=== PATIENT | female | born 1980 | race American Indian/Alaskan Native ===

== ENCOUNTER 2018-03-07 15:36 | Inpatient (IN) | payer OTHER ==
[~2018-03-07] VITALS: Ht 167.6 cm; Wt 59.1 kg
[2018-03-07 16:04] LABS: BASOPHILS % (AUTO) 0.3 % (0-1); EOSINOPHILS # (AUTO) 0.1 X10'3 (0-0.9); EOSINOPHILS % (AUTO) 1.3 % (0-6); HEMATOCRIT 41.3 % (35.0-45.0); HEMOGLOBIN 14.3 g/dl (12.0-16.0); LYMPHOCYTES # (AUTO) 1.2 X10'3 (1.1-4.8); LYMPHOCYTES % (AUTO) 25.6 % (21-51); MEAN CORPUSCULAR HEMOGLOBIN 31.6 PG (27.0-31.0); MEAN CORPUSCULAR HGB CONC 34.7 % (33.0-36.5); MEAN PLATELET VOLUME 9.1 FL (7.4-10.4); MONOCYTES # (AUTO) 0.1 X10'3 (0-0.9); NEUTROPHILS # (AUTO) 3.2 X10'3 (1.8-7.7); NEUTROPHILS % (AUTO) 69.8 % (42-75); PLATELET COUNT 188 X10'3 (140-440); RED BLOOD COUNT 4.54 X10'6 (4.20-5.60); RED CELL DISTRIBUTION WIDTH 13.4 % (11.5-14.5); WHITE BLOOD COUNT 4.5 X10'3 (4.5-11.0)
[2018-03-07 16:27] LABS: ALANINE AMINOTRANSFERASE 18 U/L (12-78); ALBUMIN 3.4 G/DL (3.4-5.0); ALBUMIN/GLOBULIN RATIO 0.9 (1.1-1.5); ALKALINE PHOSPHATASE 41 IU/L (46-116); ANION GAP 15 (8-16); ASPARTATE AMINO TRANSFERASE 10 U/L (10-37); BILIRUBIN,TOTAL 0.8 MG/DL (0.1-1.0); BLOOD UREA NITROGEN 18 MG/DL (7-18); BUN/CREATININE RATIO 27.7 (6.6-38.0); CHLORIDE 105 MMOL/L (99-107); CREATININE 0.65 MG/DL (0.40-0.90); ETHANOL < 0.010 GM/DL (0.0-0.010); GLUCOSE 75 MG/DL (70-104); POTASSIUM 4.1 MMOL/L (3.5-5.1); SODIUM 142 MMOL/L (135-145); TOTAL CARBON DIOXIDE 22.3 MMOL/L (24-32); TOTAL PROTEIN 7.1 G/DL (6.4-8.2); eGFR > 90 ML/MIN
[2018-03-07 16:46] LABS: CLARITY,URINE CLOUDY (Clear); COLOR,URINE YELLOW (Yellow); GLUCOSE, URINE NEGATIVE (Neg); KETONES,URINE >=80 mg/dl (Neg); LEUKOCYTE ESTERASE ,URINE NEGATIVE (Neg); NITRITES, URINE NEGATIVE (Neg); OCCULT BLOOD,URINE NEGATIVE (Neg); PH,URINE 5.5 (4.8-8.0); PROTEIN,URINE TRACE mg/dl (Neg); UROBILINOGEN,URINE 0.2 E.U/dL (0.2-1.0)
[2018-03-07 16:48] LABS: UA COLLECTION TYPE CLN CATCH MIDSTREAM
[2018-03-07 16:56] LABS: URINE AMPHETAMINE SCREEN NEGATIVE (Neg); URINE BARBITUATE SCREEN NEGATIVE (Neg); URINE BENZODIAZEPINES SCREEN NEGATIVE (Neg); URINE CANNABINOID SCREEN NEGATIVE (Neg); URINE COCAINE SCREEN NEGATIVE (Neg); URINE METHADONE SCREEN NEGATIVE (Neg); URINE OPIATE SCREEN NEGATIVE (Neg); URINE PHENCYCLIDINE SCREEN NEGATIVE (Neg)
[2018-03-07 17:00] LABS: CAL OXALATE CRYSTALS 2+ /HPF (NEGATIVE)
[2018-03-07 17:01] LABS: BACTERIA,URINE NONE SEEN /HPF (Neg); MUCUS STRANDS MANY /LPF (Neg); RBC,URINE 0-2 /HPF (0-2); SQUAMOUS EPITHELIAL CELL,UR FEW /LPF (FEW); WBC,URINE 0-4 /HPF (0-4)
[2018-03-08] MEDS ORDERED: dextrose 50%-water 50ml dispensing syringe IV ONE ×2 (12:35→12:37)
[2018-03-08] MEDS ORDERED: ondansetron/PF 4mg/2ml inj IM ONE (16:45)
[2018-03-08] MEDS: dextrose 5%-1/2 normal saline 1,000 ML IV SCH (17:02)
[2018-03-08] MEDS ORDERED: magnesium 2GM in 50ml NS 50 ML IV PRN (17:05)
[2018-03-08] MEDS ORDERED: acetaminophen 650mg rectal suppository RC PRN (17:05)
[2018-03-08] MEDS ORDERED: bisacodyl 10mg suppository rectal RC PRN (17:05)
[2018-03-08] MEDS ORDERED: mag hydrox/Alum hydrox/simeth 30ml oral suspension PO PRN (17:05)
[2018-03-08] MEDS ORDERED: ondansetron/PF 4mg/2ml inj IV PRN (17:05)
[2018-03-08] MEDS ORDERED: potassium Cl 40MEQ/NS 500ml 500 ML IV PRN ×2 (17:05)
[2018-03-08] MEDS ORDERED: magnesium 4gm in 100ml NS 100 ML IV PRN (17:05)
[2018-03-08] MEDS: ziprasidone IM 20mg inj **IM only IM SCH (18:26)
[2018-03-08] MEDS ORDERED: BUSP10TA11 PO (19:43)
[2018-03-08] MEDS ORDERED: FLUO-103 (19:44)
[2018-03-08] MEDS ORDERED: NALT50TA PO (19:44)
[2018-03-08] MEDS ORDERED: normal saline 1000ml 1,000 ML IV ONE (23:45)
[2018-03-09 01:10] VITALS: BP 109/69
[2018-03-09] MEDS: ziprasidone IM 20mg inj **IM only IM SCH ×5 (01:19→23:55)
[2018-03-09] MEDS: dextrose 5%-1/2 normal saline 1,000 ML IV SCH ×3 (03:02→12:23)
[2018-03-09 05:51] LABS: BASOPHILS % (AUTO) 0.7 % (0-1); EOSINOPHILS # (AUTO) 0.2 X10'3 (0-0.9); EOSINOPHILS % (AUTO) 3.7 % (0-6); HEMATOCRIT 38.2 % (35.0-45.0); HEMOGLOBIN 12.9 g/dl (12.0-16.0); LYMPHOCYTES # (AUTO) 1.6 X10'3 (1.1-4.8); LYMPHOCYTES % (AUTO) 35.4 % (21-51); MEAN CORPUSCULAR HGB CONC 33.8 % (33.0-36.5); MEAN CORPUSCULAR VOLUME 91.7 FL (78-98); MEAN PLATELET VOLUME 9.5 FL (7.4-10.4); MONOCYTES # (AUTO) 0.3 X10'3 (0-0.9); MONOCYTES % (AUTO) 6.7 % (2-12); NEUTROPHILS # (AUTO) 2.4 X10'3 (1.8-7.7); NEUTROPHILS % (AUTO) 53.5 % (42-75); PLATELET COUNT 140 X10'3 (140-440); RED BLOOD COUNT 4.16 X10'6 (4.20-5.60); RED CELL DISTRIBUTION WIDTH 13.8 % (11.5-14.5); WHITE BLOOD COUNT 4.6 X10'3 (4.5-11.0)
[2018-03-09 06:22] LABS: ALANINE AMINOTRANSFERASE 10 U/L (12-78); ALBUMIN 2.7 G/DL (3.4-5.0); ALBUMIN/GLOBULIN RATIO 0.9 (1.1-1.5); ALKALINE PHOSPHATASE 36 IU/L (46-116); ANION GAP 7 (8-16); ASPARTATE AMINO TRANSFERASE 9 U/L (10-37); BILIRUBIN,TOTAL 0.6 MG/DL (0.1-1.0); BLOOD UREA NITROGEN 16 MG/DL (7-18); BUN/CREATININE RATIO 20.5 (6.6-38.0); CALCIUM 8.3 MG/DL (8.5-10.1); CHLORIDE 109 MMOL/L (99-107); CREATININE 0.78 MG/DL (0.40-0.90); GLUCOSE 128 MG/DL (70-104); POTASSIUM 3.5 MMOL/L (3.5-5.1); SODIUM 143 MMOL/L (135-145); TOTAL CARBON DIOXIDE 26.6 MMOL/L (24-32); TOTAL PROTEIN 5.7 G/DL (6.4-8.2); eGFR 83 ML/MIN
[2018-03-09] MEDS: K and/or MAG REPLACEMENT MC SCH (06:50)
[2018-03-09 07:00] VITALS: BP 108/62
[2018-03-09 11:26] VITALS: BP 111/72
[2018-03-09 19:00] VITALS: BP 103/68
[2018-03-09 23:41] VITALS: BP 97/71
[2018-03-10 05:51] LABS: BASOPHILS % (AUTO) 0.5 % (0-1); EOSINOPHILS # (AUTO) 0.2 X10'3 (0-0.9); EOSINOPHILS % (AUTO) 4.3 % (0-6); HEMATOCRIT 38.2 % (35.0-45.0); HEMOGLOBIN 13.1 g/dl (12.0-16.0); LYMPHOCYTES # (AUTO) 1.6 X10'3 (1.1-4.8); LYMPHOCYTES % (AUTO) 34.1 % (21-51); MEAN CORPUSCULAR HEMOGLOBIN 31.6 PG (27.0-31.0); MEAN CORPUSCULAR HGB CONC 34.4 % (33.0-36.5); MEAN CORPUSCULAR VOLUME 91.9 FL (78-98); MEAN PLATELET VOLUME 9.8 FL (7.4-10.4); MONOCYTES # (AUTO) 0.2 X10'3 (0-0.9); MONOCYTES % (AUTO) 4.6 % (2-12); NEUTROPHILS # (AUTO) 2.6 X10'3 (1.8-7.7); NEUTROPHILS % (AUTO) 56.5 % (42-75); PLATELET COUNT 145 X10'3 (140-440); RED BLOOD COUNT 4.16 X10'6 (4.20-5.60); RED CELL DISTRIBUTION WIDTH 13.9 % (11.5-14.5); WHITE BLOOD COUNT 4.6 X10'3 (4.5-11.0)
[2018-03-10 06:00] LABS: ALANINE AMINOTRANSFERASE 10 U/L (12-78); ALBUMIN 2.4 G/DL (3.4-5.0); ALBUMIN/GLOBULIN RATIO 0.8 (1.1-1.5); ALKALINE PHOSPHATASE 36 IU/L (46-116); ANION GAP 8 (8-16); ASPARTATE AMINO TRANSFERASE 8 U/L (10-37); BILIRUBIN,TOTAL 0.5 MG/DL (0.1-1.0); BLOOD UREA NITROGEN 9 MG/DL (7-18); BUN/CREATININE RATIO 12.2 (6.6-38.0); CALCIUM 8.2 MG/DL (8.5-10.1); CHLORIDE 109 MMOL/L (99-107); CREATININE 0.74 MG/DL (0.40-0.90); GLUCOSE 119 MG/DL (70-104); MAGNESIUM 1.9 MG/DL (1.5-2.4); POTASSIUM 3.4 MMOL/L (3.5-5.1); SODIUM 144 MMOL/L (135-145); TOTAL CARBON DIOXIDE 26.9 MMOL/L (24-32); TOTAL PROTEIN 5.4 G/DL (6.4-8.2); eGFR 88 ML/MIN
[2018-03-10 07:00] VITALS: BP 123/74
[2018-03-10] MEDS: K and/or MAG REPLACEMENT MC SCH (08:00)
[2018-03-10] MEDS: ziprasidone IM 20mg inj **IM only IM SCH ×2 (09:31→17:17)
[2018-03-10] MEDS: dextrose 5%-1/2 normal saline 1,000 ML IV SCH ×2 (09:32→19:02)
[2018-03-10 11:24] VITALS: BP 93/67
[2018-03-10] MEDS ORDERED: ziprasidone IM 20mg inj **IM only IM SCH ×2 (17:23→20:00)
[2018-03-10 20:00] VITALS: BP 109/70
[2018-03-10] MEDS: OLANZapine 5mg rapidly disint. tablet PO SCH ×2 (20:15→20:20)
[2018-03-10] MEDS ORDERED: OLANZapine 5mg rapidly disint. tablet PO SCH ×2 (21:00)
[2018-03-11] VITALS: BP 119/79
[2018-03-11] MEDS: dextrose 5%-1/2 normal saline 1,000 ML IV SCH ×3 (00:54→20:51)
[2018-03-11 06:18] LABS: EOSINOPHILS # (AUTO) 0.2 X10'3 (0-0.9); EOSINOPHILS % (AUTO) 3.6 % (0-6); HEMATOCRIT 38.1 % (35.0-45.0); HEMOGLOBIN 12.9 g/dl (12.0-16.0); LYMPHOCYTES # (AUTO) 1.4 X10'3 (1.1-4.8); LYMPHOCYTES % (AUTO) 30.8 % (21-51); MEAN CORPUSCULAR HEMOGLOBIN 30.8 PG (27.0-31.0); MEAN CORPUSCULAR HGB CONC 33.7 % (33.0-36.5); MEAN CORPUSCULAR VOLUME 91.3 FL (78-98); MEAN PLATELET VOLUME 9.9 FL (7.4-10.4); MONOCYTES # (AUTO) 0.2 X10'3 (0-0.9); MONOCYTES % (AUTO) 5.1 % (2-12); NEUTROPHILS # (AUTO) 2.7 X10'3 (1.8-7.7); NEUTROPHILS % (AUTO) 59.5 % (42-75); PLATELET COUNT 146 X10'3 (140-440); RED BLOOD COUNT 4.17 X10'6 (4.20-5.60); RED CELL DISTRIBUTION WIDTH 13.9 % (11.5-14.5); WHITE BLOOD COUNT 4.5 X10'3 (4.5-11.0)
[2018-03-11 06:38] LABS: ALANINE AMINOTRANSFERASE 11 U/L (12-78); ALBUMIN 2.4 G/DL (3.4-5.0); ALBUMIN/GLOBULIN RATIO 0.8 (1.1-1.5); ALKALINE PHOSPHATASE 36 IU/L (46-116); ANION GAP 7 (8-16); ASPARTATE AMINO TRANSFERASE 11 U/L (10-37); BILIRUBIN,TOTAL 0.6 MG/DL (0.1-1.0); BLOOD UREA NITROGEN 6 MG/DL (7-18); BUN/CREATININE RATIO 7.8 (6.6-38.0); CALCIUM 8.4 MG/DL (8.5-10.1); CHLORIDE 108 MMOL/L (99-107); CREATININE 0.77 MG/DL (0.40-0.90); GLUCOSE 107 MG/DL (70-104); MAGNESIUM 1.7 MG/DL (1.5-2.4); POTASSIUM 3.5 MMOL/L (3.5-5.1); SODIUM 142 MMOL/L (135-145); TOTAL CARBON DIOXIDE 26.8 MMOL/L (24-32); TOTAL PROTEIN 5.5 G/DL (6.4-8.2); eGFR 84 ML/MIN
[2018-03-11 07:05] VITALS: BP 116/74
[2018-03-11] MEDS: K and/or MAG REPLACEMENT MC SCH (07:14)
[2018-03-11] MEDS: ziprasidone IM 20mg inj **IM only IM SCH ×2 (08:09→15:24)
[2018-03-11] MEDS ORDERED: LORazepam 2 mg/ml vial IV ONE (10:15)
[2018-03-11 11:43] VITALS: BP 107/68
[2018-03-11] MEDS: LORazepam 2 mg/ml vial IV SCH ×2 (17:06→20:48)
[2018-03-11 20:00] VITALS: BP 102/74
[2018-03-11] MEDS: OLANZapine 5mg rapidly disint. tablet PO SCH ×2 (20:44→20:49)
[2018-03-12] VITALS: BP 129/73
[2018-03-12] MEDS: LORazepam 2 mg/ml vial IV SCH ×5 (01:40→15:59)
[2018-03-12 05:26] LABS: BASOPHILS % (AUTO) 0.7 % (0-1); EOSINOPHILS # (AUTO) 0.1 X10'3 (0-0.9); EOSINOPHILS % (AUTO) 2.8 % (0-6); HEMATOCRIT 39.6 % (35.0-45.0); HEMOGLOBIN 13.8 g/dl (12.0-16.0); LYMPHOCYTES # (AUTO) 1.4 X10'3 (1.1-4.8); MEAN CORPUSCULAR HEMOGLOBIN 31.5 PG (27.0-31.0); MEAN CORPUSCULAR HGB CONC 34.9 % (33.0-36.5); MEAN CORPUSCULAR VOLUME 90.2 FL (78-98); MEAN PLATELET VOLUME 9.8 FL (7.4-10.4); MONOCYTES # (AUTO) 0.2 X10'3 (0-0.9); MONOCYTES % (AUTO) 5.3 % (2-12); NEUTROPHILS # (AUTO) 2.4 X10'3 (1.8-7.7); NEUTROPHILS % (AUTO) 57.2 % (42-75); PLATELET COUNT 152 X10'3 (140-440); RED BLOOD COUNT 4.39 X10'6 (4.20-5.60); RED CELL DISTRIBUTION WIDTH 13.5 % (11.5-14.5); WHITE BLOOD COUNT 4.2 X10'3 (4.5-11.0)
[2018-03-12 05:53] LABS: ALANINE AMINOTRANSFERASE 12 U/L (12-78); ALBUMIN 2.5 G/DL (3.4-5.0); ALBUMIN/GLOBULIN RATIO 0.8 (1.1-1.5); ALKALINE PHOSPHATASE 38 IU/L (46-116); ANION GAP 7 (8-16); ASPARTATE AMINO TRANSFERASE 11 U/L (10-37); BILIRUBIN,TOTAL 0.7 MG/DL (0.1-1.0); BLOOD UREA NITROGEN 5 MG/DL (7-18); BUN/CREATININE RATIO 6.9 (6.6-38.0); CALCIUM 8.5 MG/DL (8.5-10.1); CHLORIDE 107 MMOL/L (99-107); CREATININE 0.72 MG/DL (0.40-0.90); GLUCOSE 109 MG/DL (70-104); MAGNESIUM 1.8 MG/DL (1.5-2.4); POTASSIUM 3.2 MMOL/L (3.5-5.1); SODIUM 142 MMOL/L (135-145); TOTAL CARBON DIOXIDE 27.8 MMOL/L (24-32); TOTAL PROTEIN 5.7 G/DL (6.4-8.2); eGFR > 90 ML/MIN
[2018-03-12] MEDS: dextrose 5%-1/2 normal saline 1,000 ML IV SCH (06:43)
[2018-03-12 07:11] VITALS: BP 130/86
[2018-03-12] MEDS: ziprasidone IM 20mg inj **IM only IM SCH (07:54)
[2018-03-12] MEDS ORDERED: potassium Cl 40MEQ/NS 500ml 500 ML IV PRN ×2 (07:55)
[2018-03-12] MEDS ORDERED: magnesium Cl slow-release 64mg tablet PO PRN (07:55)
[2018-03-12] MEDS ORDERED: magnesium 2GM in 50ml NS 50 ML IV PRN (07:55)
[2018-03-12] MEDS ORDERED: potassium Cl 20 mEq SR tablet PO PRN ×2 (07:55)
[2018-03-12] MEDS ORDERED: magnesium 4gm in 100ml NS 100 ML IV PRN (07:55)
[2018-03-12] MEDS: K and/or MAG REPLACEMENT MC SCH (08:00)
[2018-03-12] MEDS ORDERED: LIDOcaine 1% 30ml vial 5 ML in potassium Cl 40MEQ/NS 500ml 500 ML IV ONE (09:00)
[2018-03-12 11:00] VITALS: BP 131/91
[2018-03-12] MEDS ORDERED: ziprasidone IM 20mg inj **IM only IM SCH (12:48)
[2018-03-12 18:30] VITALS: BP 120/91
== END 2018-03-12 18:30 | disposition home or self-care (01) | DRG 885 ==
LOC: ER 15:37 → ED HOLD 03-08 17:02 → MED 3N 03-09 01:12
PROVIDERS: ADMIT Family Medicine; ATTEND Family Medicine
DX: F29 Unspecified psychosis not due to a substance or known physiological condition (principal); F20.9 Schizophrenia, unspecified; R62.7 Adult failure to thrive; F31.9 Bipolar disorder, unspecified; Z79.899 Other long term (current) drug therapy; Z91.19 Patient's noncompliance with other medical treatment and regimen
CPT/HCPCS: 36415; 70450; 80053; 80305; 80320; 81001; 82948; 83605; 83735; 84443; 85025; 87040; 87070; 96374; 97116; 97161; 97530; 99285; A4315; A4344; A4565; A6258; J2060; J3480; J3486; J3490; J7030

== ENCOUNTER 2018-03-12 19:00 | Emergency (ER) | payer OTHER ==
[~2018-03-12] VITALS: Ht 5535.5 cm; Wt 60.0 kg
[~2018-03-12 19:00] MED LIST: BUSP10TA11 PO; FLUO-103; NALT50TA PO
[2018-03-12] MEDS ORDERED: OLANZapine 2.5MG tablet PO SCH (21:00)
[2018-03-13 11:45] VITALS: BP 88/58
== END 2018-03-13 11:49 | disposition home or self-care (01) ==
LOC: ER 19:00
DX: F99 Mental disorder, not otherwise specified (principal); F20.9 Schizophrenia, unspecified
CPT/HCPCS: 99283